=== PATIENT | male | born 2000 | race Caucasian/White ===

== ENCOUNTER 2023-08-20 20:12 | Emergency (ER) | payer OTHER, SELFPAY ==
[2023-08-20 20:16] VITALS: BP 148/87
--- NOTE | 2023-08-20 20:46 | ED.GENMED ---
History of Present Illness
General
Chief Complaint: Eye Problems
Source: patient
Exam Limitations: none
Time Seen by Provider: 08/20/23 20:22
Nursing documentation reviewed up to this point in time: agreed with
Travel History
Have you had any contact with someone who has COVID-19?: No
Do you have any symptoms of coronavirus? Fever > 100 degrees, chills, cough, shortness of breath, sore throat, loss of taste or smell, muscle aches, or headache?: No
History of Present Illness
History of Present Illness:
Patient states he was hit in the eye with tree branch while doing yard work. COmplains of pain to right eye. Injury occurred this afternoon.
Past History
Past History
ED Past Medical History: None; Negative Asthma, HTN, Hypercholesterolemia or NIDDM
ED Past Surgical History: None
Social History
Tobacco: Non-smoker
Alcohol: None
Personal: Single
Living: with family
Review of Systems
Review of Systems
Allergies reviewed?: Yes
All Other Systems: ROS reviewed and negative except as documented in HPI and ROS
Constitutional: Reports no symptoms
EENT: Reports tearing (right eye pain)
Musculoskeletal: Reports no symptoms
Skin: Reports no symptoms
Neurological: Reports no symptoms
Psychiatric: Reports no symptoms
Phy Exam
General Physical Exam
General Presentation: well appearing and mild distress
General age: appears stated age
General Skin: warm and dry
General Habitus: normal
General Mental: alert
General Hydration: appears well hydrated
Eye Exam
Eye Exam: PERRL, EOMI, conjunctiva normal, globe normal and other (Lids everted, swept with qtip, no foreign body detected.)
Eye Exam General: PERRL: bilateral and EOM intact: bilateral
Conjunctival Changes: right: watery discharge
Cornea Exam: abrasion: Right (superfical 4-6 oclock)
Type of Exam: slit lamp, simple and fluorescein
Musculoskeletal Exam
Musculoskeletal Exam: full ROM
Skin Exam
Skin Exam: normal color, warm/dry and no rash
Psychiatric Exam
Psychiatric Exam: normal mood/affect
Course
Orders/Labs/Results
Orders:
Orders
08/20/23 20:43
Tobramycin 0.3% [Tobrex 0.3% Eye Drops] See Dose Instructions OPHTH NOW STA
Vital Signs
Initial and Last Documented VS:
Initial Vital Signs
Temp Pulse Resp BP Pulse Ox
97.7 F 60 19 148/87 97
08/20/23 20:16 08/20/23 20:16 08/20/23 20:16 08/20/23 20:16 08/20/23 20:16
Last Documented Vital Signs
Temp Pulse Resp BP Pulse Ox
97.7 F 60 19 148/87 97
08/20/23 20:16 08/20/23 20:16 08/20/23 20:16 08/20/23 20:16 08/20/23 20:16
*Critical Care Note
Total Time (30-74mins, 75-104mins- exclusive of procedures): Not Applicable
ED Attending Note
-
Portions of this chart may have been created with voice recognition software.� Occasional wrong word or��sound alike� substitutions may have occurred due to the inherent limitations of voice recognition software.
Discharge Plan
Departure
Patient Disposition: Home (Routine Discharge)
Date of Disposition: 08/20/23
Time of Disposition: 20:43
Patient with high blood pressure during this ER visit?: No
Condition: Good
Covid-19: Not Applicable
Discharge Problem:
Abrasion, corneal
Instructions: Corneal Abrasion (DC), Ibuprofen, How to Use Eye Drops
Prescriptions:
New
tobramycin 0.3 % drops
1 drp ophthalmic (eye) [id number] Qty: 5 0RF
No Action
ondansetron 4 MG tablet,disintegrating
4 mg PO TIDPRN Qty: 5 0RF
Referrals:
Staci Vaughan MD [Non-Admitting Privileges] - Follow up in 2-3 days
Interventions
Interventions:
*Risk Screen - Suicide Last Done: 08/20/23 20:16
*General Assessment Last Done: 08/20/23 20:16
*Neglect/Abuse Screening Last Done: 08/20/23 20:16
*ED COVID-19 Vaccine History Last Done: 08/20/23 20:16
Discharge Date and Time
Print Language: KHMER
[2023-08-20] MEDS: TOBREX 0.3% EYE DROPS 1 DROP OPHTH (20:59)
== END 2023-08-20 21:10 | disposition home or self-care (01) ==
LOC: EMR 20:12
PROVIDERS: EMERGENCY PHYSICIAN Emergency Medicine
DX: S05.01XA Injury of conjunctiva and corneal abrasion without foreign body, right eye, initial encounter (principal); W22.8XXA Striking against or struck by other objects, initial encounter
CPT/HCPCS: 99283